=== PATIENT | male | born 2000 | race Caucasian/White ===

== ENCOUNTER 2024-11-11 19:35 | Emergency (ER) | payer OTHER ==
[~2024-11-11] VITALS: Ht 182.9 cm; Wt 86.4 kg
[2024-11-11 21:45] VITALS: BP 136/97; TEMP 98.9; O2SAT 98
== END 2024-11-11 21:47 | disposition home or self-care (01) ==
LOC: M ED 19:35
DX: S63.602A Unspecified sprain of left thumb, initial encounter (principal); T22.112A Burn of first degree of left forearm, initial encounter; T22.111A Burn of first degree of right forearm, initial encounter; V49.40XA Driver injured in collision with unspecified motor vehicles in traffic accident, initial encounter; Y92.410 Unspecified street and highway as the place of occurrence of the external cause; Y93.89 Activity, other specified; Y99.9 Unspecified external cause status